=== PATIENT | female | born 1955 | race Caucasian/White ===

== ENCOUNTER 2017-05-03 18:48 | Emergency (ER) | payer OTHER ==
[2017-05-03] MEDS ORDERED: Famotidine In NaCl 20 mg/50 ml Premix Bag ONE (19:22)
[2017-05-03 19:28] LABS: ALT (SGPT) 16 U/L (8-55); AST (SGOT) 23 U/L (5-34); Albumin 2.9 g/dL (3.4-4.8); Alkaline Phosphatase 46 U/L (40-150); Anion Gap 17 mmol/L (10-20); BUN (Urea Nitrogen) 14 mg/dL (9.8-20.1); Bilirubin, Total 0.8 mg/dL (0.2-1.2); Calc. Creatinine Clearance 0 mL/min (70-130); Calcium 7.8 mg/dL (7.8-10.44); Carbon Dioxide 16 mmol/L (23-31); Chloride 108 mmol/L (98-107); Estimated GFR-MDRD 70; Globulin 2.3 g/dL (2.4-3.5); Glucose 166 mg/dL (80-115); Lipase 58 U/L (8-78); Potassium 3.4 mmol/L (3.5-5.1); Protein, Total 5.2 g/dL (6.0-8.3); Sodium 138 mmol/L (136-145)
[2017-05-03 19:29] LABS: CKMB 1.3 ng/mL (0-6.6); Troponin I Less than 0.010 ng/mL (< 0.028)
[2017-05-03 19:30] LABS: INR-International Normal Ratio 1.2; PTT 23.7 SEC (22.9-36.1); Prothrombin Time 15.4 SEC (12.0-14.7)
[2017-05-03 19:34] LABS: Eosinophils 7 % (0-10); Hemoglobin 4.5 g/dL (12.0-16.0); Lymphocytes 23 % (21-51); MDiff Complete? YES; Macrocytosis SLIGHT = 6-15 cells (100X) (0-5/hpf); Mean Corpuscular Hemoglobin 32.7 pg (27.0-31.0); Mean Platelet Volume 6.2 fL (7.4-10.4); Monocytes 3 % (0-10); Neutrophil 67 % (42-75); Nucleated RBC 2 % (0); Platelet Count 161 thou/uL (130-400); Polychromasia MARKED = >4 cells (100X) (0-2/hpf); RBC Distribution Width 18.5 % (11.5-14.5); Red Blood Cell (RBC) Count 1.38 mill/uL (4.20-5.40); Rouleaux Formation MODERATE= 6-15 cells (100X) (None Seen)
[2017-05-03 19:41] LABS: White Blood Cell (WBC) Count 11.6 thou/uL (4.8-10.8)
--- NOTE | 2017-05-03 20:30 | RAD ---
PORTABLE CHEST 05/03/17 An AP portable film at 1901 is compared with a 04/26/[address] [facility]. The heart is normal in size and the lungs are clear. No infiltrate or effusion was seen. There is no vascular congestion or edema. The lungs are slightly hyperexpanded. IMPRESSION: No acute thoracic findings. POS: HOME
[2017-05-03] MEDS ORDERED: Thiamine HCl 200 MG/2 ML VIAL ONE (20:59)
== END 2017-05-03 20:21 | disposition short-term general hospital (02) ==
LOC: BURERS 18:48
DX: K92.2 Gastrointestinal hemorrhage, unspecified (principal); K70.30 Alcoholic cirrhosis of liver without ascites; D50.0 Iron deficiency anemia secondary to blood loss (chronic); I11.0 Hypertensive heart disease with heart failure; I50.9 Heart failure, unspecified; E03.9 Hypothyroidism, unspecified; Z87.891 Personal history of nicotine dependence; Z79.899 Other long term (current) drug therapy
CPT/HCPCS: 36430; 71010; 80053; 82274; 82553; 83690; 83880; 84443; 84484; 85025; 85610; 85730; 86850; 86900; 86901; 86922; 93005; 94760; 96365; 96375; J3411; P9016

== ENCOUNTER 2017-06-07 08:11 | Outpatient (CLI) | payer OTHER ==
--- NOTE | 2017-06-07 13:33 | ULT ---
RIGHT UPPER QUADRANT ULTRASOUND: History: Cirrhosis. Ascites. Comparison: None. Technique: Limited imaging of the right upper quadrant is performed in longitudinal and transverse p stefany. FINDINGS: The head and proximal body of the pancreas have a normal echotexture. The remainder of the pancreas obscured by bowel gas. There is mild heterogeneity of hepatic parenchyma which limits evaluation for hepatic masses and int rahepatic biliary dilatation. The contour of the hepatic margin appears to be maintained. Right hepa tic lobe dimensions are not measured. Right kidney has a normal cortical echotexture. No hydronephrosis. Right kidney measures 3.8 x 4.1 x 9.2 cm. No ultrasound evidence of cholelithiasis, gallbladder wall thickening, or pericholecystic fluid. [employer] does not comment on the presence of Mccabe's sign. Suboptimal evaluation of the common bile duct. No evidence of ascites. IMPRESSION: 1. No evidence of ascites. 2. Heterogenous echotexture of the liver which may be due to hepatic steatosis or hepatocellular dis ease. 3. Additional findings as detailed above. POS: [facility]
== END 2017-06-07 08:12 | disposition home or self-care (01) ==
LOC: BURULT 08:11
PROVIDERS: ATTEND Internal Medicine Gastroenterology
DX: K70.31 Alcoholic cirrhosis of liver with ascites (principal); D64.9 Anemia, unspecified
CPT/HCPCS: 76705

== ENCOUNTER 2018-03-26 09:22 | Outpatient (CLI) | payer MEDICARE, MEDICAID ==
[~2018-03-26 09:22] MED LIST: Iopamidol 370 76% 100 ML VIAL ONE
--- NOTE | 2018-03-26 14:35 | CT ---
CT ABDOMEN AND PELVIS WITH CONTRAST: Date: 03-26-18 Technique: Spiral CT of the abdomen and pelvis was performed in this patient with known cirrhosis and prior history of mesenteric vein thrombosis. Axial slices were acquired after giving oral and IV con trast. Coronal and sagittal reconstructions were done afterwards. FINDINGS: The lung bases are clear. The liver shows very distinctly nodular surfaces on all scans consistent wi th the history of cirrhosis. No hepatic masses were seen. There are no dilated ducts. The superior m esenteric vein is patent and contains no sign of emboli. The portal vein is patent. Some dilated ve ins are in the upper abdomen, particularly superomedial to the spleen. The patient's spleen is normal in size. No stones were seen in the gallbladder. The pancreas appears normal, as do the adrenal glan ds and kidneys. The aorta has a small amount of arterial sclerotic change in it but no aneurysm. The folds of the stomach are perhaps slightly thickened, but this is an equivocal finding as it is no t fully distended. There is no distention of bowel, bowel wall thickening, or inflammatory changes as sociated with bowel. There is no sign of ascites or other free fluid today. No free air was noted. CT of the pelvis shows no pelvic masses, fluid collections, or inflammatory changes. No acute changes were seen in the lumbar spine or pelvis. IMPRESSION: 1. Nodular liver consistent with the clinical history of cirrhosis. 2. Good filling of the portal vein and superior mesenteric vein. No gross thrombosis was indicated. S ome dilated mesenteric veins around the spleen. 3. Equivocal thickening of the gastric folds. POS: HOME
== END 2018-03-26 09:23 | disposition home or self-care (01) ==
LOC: BURCT 09:22
PROVIDERS: ATTEND Internal Medicine Gastroenterology
DX: I86.8 Varicose veins of other specified sites (principal); K70.31 Alcoholic cirrhosis of liver with ascites; K72.90 Hepatic failure, unspecified without coma; I81 Portal vein thrombosis
CPT/HCPCS: 74177; A4216

== ENCOUNTER 2018-05-19 22:31 | Emergency (ER) | payer MEDICARE, MEDICAID ==
[2018-05-19 23:20] LABS: INR-International Normal Ratio 1.9; Prothrombin Time 21.8 SEC (12.0-14.7)
== END 2018-05-19 23:30 | disposition home or self-care (01) ==
LOC: BURERS 22:31
DX: M79.81 Nontraumatic hematoma of soft tissue (principal); E03.9 Hypothyroidism, unspecified; I11.0 Hypertensive heart disease with heart failure; I50.9 Heart failure, unspecified; Z87.891 Personal history of nicotine dependence; Z79.01 Long term (current) use of anticoagulants; Z79.899 Other long term (current) drug therapy
CPT/HCPCS: 36415; 85610; 99283

== ENCOUNTER 2019-04-04 08:15 | Outpatient (CLI) | payer MEDICARE, MEDICAID ==
--- NOTE | 2019-04-04 20:42 | ULT ---
HEPATIC ULTRASOUND WITH DOPPLER 04/04/19 Ultrasonography of the right upper quadrant was performed for evaluation in this patient with known a lcoholic cirrhosis. Comparison was made with a 11/16/18 study done at [facility]. The liver showed no space occupying lesions or dilated ducts. It measured about 14 cm in oblique sagi ttal length. Not all sections were seen equally well. The spleen was normal in size. The gallbladder contains no wall thickening or stones. The common bile duct is a normal 4 mm in caliber. The right k idney was 10 cm long and appears normal. Doppler evaluation of the liver showed a main portal vein that was 9 mm in diameter (normal) and with flow rates of about 14 cm/s. This is on the low side and would be concerning for portal hypertension . It does not appear to be markedly different than below. Flow was present in all of the hepatic vein s. The portal venous flow was towards the liver as expected. The resistive index in the hepatic arter y was 0.74 which is normal. IMPRESSION: 1. No dramatic changes since the prior examination. 2. Very minimal nodularity to the liver consistent with the clinical history of cirrhosis. 3. Low flow rates in the portal vein suggestive of portal hypertension. POS: HOME
== END 2019-04-04 08:16 | disposition home or self-care (01) ==
LOC: BURULT 08:15 → EEVIPCON 08:15 → BURULT 08:16
PROVIDERS: ATTEND Internal Medicine Gastroenterology
DX: K72.90 Hepatic failure, unspecified without coma (principal); K70.31 Alcoholic cirrhosis of liver with ascites; I81 Portal vein thrombosis
CPT/HCPCS: 76705

== ENCOUNTER 2019-10-10 09:30 | Outpatient (CLI) | payer MEDICARE, MEDICAID ==
--- NOTE | 2019-10-11 07:40 | ULT ---
Right upper quadrant ultrasound: 10/10/2019 HISTORY: Cirrhosis TECHNIQUE: Multiplanar grayscale sonographic imaging of the right upper quadrant provided. FINDINGS: Imaged pancreas grossly unremarkable. Distal body and tail obscured by bowel gas. Hepatic parenchyma is mildly heterogeneous and echogenic, consistent with the provided history of cir rhosis. The main portal vein is patent and demonstrates hepatopedal flow. No discrete focal liver lesion or intrahepatic biliary dilatation. No gallbladder wall thickening or pericholecystic fluid. No gallstones are noted. No ascites noted wi thin the imaged upper abdomen. Right kidney measures 9.1 cm in craniocaudal dimension and demonstrates no stone, hydronephrosis, or mass lesion. The common bile duct measures approximately 5 mm, within normal limits. IMPRESSION: Abnormal appearance of the hepatic parenchyma consistent with the patient's history of ci rrhosis, similar when compared to prior imaging. No acute findings are noted on this examination.
== END 2019-10-10 09:31 | disposition home or self-care (01) ==
LOC: BURULT 09:30
PROVIDERS: ATTEND Internal Medicine Gastroenterology
DX: K70.31 Alcoholic cirrhosis of liver with ascites (principal); K72.90 Hepatic failure, unspecified without coma; R10.13 Epigastric pain; R93.2 Abnormal findings on diagnostic imaging of liver and biliary tract
CPT/HCPCS: 76705